=== PATIENT | female | born 1985 | race Hispanic/Latino ===

== ENCOUNTER 2017-03-26 14:27 | Emergency (ER) | payer OTHER ==
[2017-03-26 16:22] VITALS: BMI 26.2
[2017-03-26 16:24] VITALS: BP 121/84; PULSE 107; RESP 18; TEMP 98.6; O2SAT 99
--- NOTE | 2017-03-26 17:23 | ED PDOC ---
Arrival/HPI - General Chief Complaint: Back Pain Time Seen by Provider: 03/26/17 16:53 Historian: Patient - History of Present Illness Narrative History of Present Illness (Text): 03/26/17 17:17 32yo female with no PMHx present with complaint of right anterior rib pain x 2weeks. She states pain is usually with some movement. States she did not take any analgesic because she don't like taking medciation. She thinks is a muscle strain and not sure what the mechanism behind it is. States she came to ED for evaluation and don't want any medication. She reports mild nonproductive cough. Pain with cough. Denies fever, chills, chest pain, SOB, diaphoresis, LE edema, calf pain, trauma, any other complaint. Past Medical History - Provider Review Nursing Documentation Reviewed: Yes - Infectious Disease Hx of Infectious Diseases: None - Cardiac Other/Comment: tachycardia - Psychiatric Hx Depression: No Hx Substance Use: No - Anesthesia Hx Anesthesia: No - Suicidal Assessment Feels Threatened In Home Enviroment: No Family/Social History - Physician Review Nursing Documentation Reviewed: Yes Family/Social History: Unknown Family HX Smoking Status: Heavy Smoker > 10 Cigarettes Daily Hx Alcohol Use: No Hx Substance Use: No Hx Substance Use Treatment: No Allergies/Home Meds Allergies/Adverse Reactions: Allergies levofloxacin [From Levaquin] Allergy (Severe, Verified 01/10/16 17:51) RASH Home Medications: Home Meds Medication Instructions Recorded Confirmed No Known Home Med 03/26/17 03/26/17 Review of Systems - Physician Review All systems were reviewed & negative as marked: Yes - Review of Systems Constitutional: Normal Eyes: Normal ENT: Normal Respiratory: Normal Cardiovascular: Normal Gastrointestinal: Normal Genitourinary Female: Normal Musculoskeletal: Arthralgias (Right rib pain) Skin: Normal Neurological: Normal Endocrine: Normal Hemo/Lymphatic: Normal Psychiatric: Normal Physical Exam Vital Signs Reviewed: Yes Vital Signs Temp Pulse Resp BP Pulse Ox 03/26/17 16:23 98.6 F 107 H 18 121/84 99 Temperature: Afebrile Blood Pressure: Normal Pulse: Regular Respiratory Rate: Normal Appearance: Positive for: Well-Appearing, Non-Toxic, Comfortable Pain Distress: None Mental Status: Positive for: Alert and Oriented X 3 - Systems Exam Head: Present: Atraumatic, Normocephalic Pupils: Present: PERRL Extroacular Muscles: Present: EOMI Conjunctiva: Present: Normal Mouth: Present: Moist Mucous Membranes Neck: Present: Normal Range of Motion Respiratory/Chest: Present: Clear to Auscultation, Good Air Exchange, Tender to Palpation (Focal tenderness over the anterior right mid rib). No: Respiratory Distress, Accessory Muscle Use, Wheezes, Decreased Breath Sounds, Rales, Retracting, Rhonchi, Tachypneic Cardiovascular: Present: Regular Rate and Rhythm, Normal S1, S2. No: Murmurs Abdomen: Present: Normal Bowel Sounds. No: Tenderness, Distention, Peritoneal Signs Back: Present: Normal Inspection Upper Extremity: Present: Normal Inspection. No: Cyanosis, Edema Lower Extremity: Present: Normal Inspection. No: Edema Neurological: Present: GCS=15, CN II-XII Intact, Speech Normal Skin: Present: Warm, Dry, Normal Color. No: Rashes Psychiatric: Present: Alert, Oriented x 3, Normal Insight, Normal Concentration Medical Decision Making ED Course and Treatment: 03/26/17 17:25 Pt presented for stated history. She was not in any distress. Hemodynamically stable. Denies SOB, diaphoresis or any other complaint in ED. 03/26/17 17:28 Per RN, pt eloped from ED while waiting for Rib series/CXR. - RAD Interpretation Radiology Orders: 03/26/17 16:53 RIBS RIGHT & PA CHEST [RAD] Stat Disposition/Present on Arrival - Present on Arrival Any Indicators Present on Arrival: No History of DVT/PE: No History of Uncontrolled Diabetes: No Urinary Catheter: No History of Decub. Ulcer: No History Surgical Site Infection Following: None - Disposition Have Diagnosis and Disposition been Completed?: Yes Diagnosis: Rib pain Disposition: LEFT W/O TREATMENT - ER ONLY Disposition Time: 17:10 Patient Problems: Current Active Problems Problem Status Onset Rib pain Acute Condition: GOOD Discharge Instructions (ExitCare): Chest Pain (ED) Referrals: Jose Antonio Mueller DO [Primary Care Provider] - Follow up with primary Forms: [employer] ([place])
== END 2017-03-26 17:36 | disposition left against medical advice (07) ==
LOC: ED 14:27
DX: R07.81 Pleurodynia (principal)